=== PATIENT | female | born 1990 | race Caucasian/White ===

== ENCOUNTER 2023-07-18 07:10 | Inpatient (IN) ==
[2023-07-18] MEDS ORDERED: OXYTOCIN 30 UNITS/500 ML BAG IV PRN ×3 (08:24→22:03)
[2023-07-18] MEDS ORDERED: LIDOCAINE 1% LOCAL 20 ML VIAL INFIL PRN (08:24)
[2023-07-18] MEDS: LACTATED RINGER'S 1,000 ML IV PRN ×2 (08:43→13:31)
[2023-07-18 08:47] LABS: Hematocrit (blood only) 35.3 % (37.0-47.0); Hemoglobin 12.1 g/dl (12.0-16.0); Mean Corpuscular Hemoglobin 30.5 pg (25.0-34.0); Mean Corpuscular Hgb Conc 34.3 g/dL (32.0-36.0); Mean Corpuscular Volume 88.9 fL (80.0-100.0); Mean Platelet Volume 9.6 fL (9.4-12.4); Platelet Count 291 K/uL (130-400); RDW Coefficient of Variation 13.1 % (11.5-14.5); RDW Standard Deviation 42.6 fL (36.4-46.3); Red Blood Count 3.97 M/uL (4.20-5.40); White Blood Count 12.77 K/ul (4.8-10.8)
--- NOTE | 2023-07-18 09:52 | History & Physical Report ---
Date of Service July 18, 2023 Assessment & Plan (1) Hypothyroidism during : Plan: Maria A is a 33-year-old G2, P0 currently at 39 weeks 5 days gestational age presents with spontaneous rupture of membranes. 1. Fetus: Cat 1 2. Labor: Not in labor. Cervix unfavorable. Recommended starting oxytocin which patient was agreeable to 3 GBS negative 4 vitals within normal limits. (2) Supervision of normal first : (3) PROM (premature rupture of membranes): History of Present Illness Primary Care Provider: Ara Mcgovern MD Maria A is a 33-year-old G2, P0 currently at 39 weeks 5 days gestational age presents with spontaneous rupture of membranes. Patient reports rupture membranes around 5 AM this morning. Reporting mild contractions movement. Denying any vaginal bleeding. complicated by hypothyroidism but otherwise unremarkable. OB Labs: Blood Type A Positive 01/06/23 Antibody Screen NEGATIVE 01/06/23 Hemoglobin 11.1 g/dl (12.0-16.0) L 05/03/23 Hematocrit 32.6 % (37.0-47.0) L 05/03/23 Mean Corpuscular Volume 88.4 fL (80.0-100.0) 01/06/23 Platelet Count 310 K/uL (130-400) 01/06/23 Varicella-Zoster IgG Antibody 337.50 index 03/26/22 Rubella IgG Antibody Immune (Immune) 01/06/23 Rapid Plasma Reagin Nonreactive (Nonreactive) 01/06/23 Hepatitis B Surface Antigen. NON-REACTIVE (NON-REACTIVE) 01/06/23 Hepatitis C Antibody (EIA) NON-REACTIVE (NON-REACTIVE) 01/06/23 HIV (1&2) Ag and Ab Confirmation NON-REACTIVE (NON-REACTIVE) 01/06/23 Glucose 1 Hour 50 gm Load 130 mg/dl (70-130) 05/03/23 OB Optional Labs: Chlamydia trachomatis RNA Not Detected (NotDetected) 01/06/23 Neisseria gonorrhoeae RNA Not Detected (NotDetected) 01/06/23 Thyroid Stimulating Hormone (TSH) 0.653 uIu/ml (0.300-4.500) 05/03/23 Allergies Allergy/AdvReac Type Severity Reaction Status Date / Time No Known Allergies Allergy Verified 07/16/23 15:18 Home Medications Medication Instructions Recorded Confirmed Type prenat.vits,keli,uzf-swwy-iiyzw 1 tab PO DAILY 06/05/21 07/16/23 History levothyroxine 125 mcg capsule See Rx Instructions PO QAM #104 04/27/23 07/18/23 Rx caps Patient History Medical History GERD (gastroesophageal reflux disease) History of COVID-19 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 Surgical History [place] teeth extracted Family History Grandmother (Paternal) Breast cancer Grandfather (Paternal) Prostate cancer Alzheimer disease Grandmother (Maternal) Diabetes Grandfather (Maternal) Diabetes Heart disease Cancer Other No family history of adverse response to anesthesia Denies family history of Ovarian cancer Crohn's disease Myocardial infarction Colorectal cancer Ulcerative colitis Colonic polyp Social History (Updated 01/01/23 @ 08:56 by Maggie Sosa RN) Smoking Status: Never smoker Second Hand Exposure: No; Do You Dip or Chew Tobacco: No; Hx Alcohol Use: Yes Alcohol type: beer, wine and hard liquor Hx Substance Use: No Preferred Language: Irish Communication Ability: Effective Visual Impairment: Partially Limited Hearing Ability: Normal Cardiology Physician Assistant Required: No Beliefs That Will Affect Care: None marital status: marital status details: Rajan Sharp ( [phone] Current Living Situation: Spouse Current Living Situation Comment: Lives at home with and one dog. current occupational status: employed current occupation: [employer] How many Children do You have: 0 Other Information That Helps Us Care for You: No Feels Safe at Home: Yes Safety Concerns: Feels Safe At This Time Childhood Exposure to Second-Hand Smoke: No Diet: regular during the past year weight has: remained stable Dental Care, Regularly: Yes Physical Activity Frequency: Daily Seatbelt Use: always Sunscreen Use: Yes Assistive Devices: None Physical Exam Genitourinary: normal external appearance Manual OB Exam: + cervical dilation fingertip, + cervical effacement 20%, + station high and + amniotic fluid (Positive ferning and pooling) clear OB Exam Monitor Tracing: + external FHT monitor used, + external uterine monitor used, + category I and + normal FHT variability Results & Data Vital Signs (Past 12 Hours) Vital Signs Temp Pulse Resp BP 07/18/23 07:35 36.9 C 86 16 117/74 07/18/23 07:34 86 117/74 Coding Level of Care Code None Diagnoses Hypothyroidism during in third trimester O99.283; E03.9 Trimester: third trimester Encounter for supervision of normal first in third trimester Z34.03 Trimester: third trimester Full-term premature rupture of membranes, unspecified duration to onset of labor O42.92 PROM onset of labor timing: unspecified duration between rupture of membranes and onset of labor PROM gestational age: full term (1) Hypothyroidism during Trimester: third trimester Qualified Code(s): O99.283 - Endocrine, nutritional and metabolic diseases complicating , third trimester; E03.9 - Hypothyroidism, unspecified (2) Supervision of normal first Trimester: third trimester Qualified Code(s): Z34.03 - Encounter for supervision of normal first , third trimester (3) PROM (premature rupture of membranes) PROM onset of labor timing: unspecified duration between rupture of membranes and onset of labor PROM gestational age: full term Qualified Code(s): O42.92 - Full-term premature rupture of membranes, unspecified as to length of time between rupture and onset of labor
[2023-07-18] MEDS ORDERED: SODIUM CHLORIDE 0.9% PF INJ 10 ML VIAL ONE (12:17)
[2023-07-18] MEDS ORDERED: fentaNYL citrate PF 100 MCG/2 ML VIAL ONE ×2 (12:17→18:02)
[2023-07-18] MEDS ORDERED: ePHEDrine sulfate 50 MG/ML AMP ONE (12:17)
[2023-07-18] MEDS ORDERED: fentANYL 2 MCG/ML BUPIVacaine 0.125%-NSS 100ML BAG ONE (12:18)
[2023-07-18] MEDS ORDERED: LIDOCAINE 2%/EPINEPHRINE 1:200,000 20 ML PF ONE (12:18)
[2023-07-18] MEDS ORDERED: BUPIVACAINE 0.25% PF 30 ML VIAL ONE (12:18)
--- NOTE | 2023-07-18 13:36 | Anesthesiology Consultation ---
Date of Service July 18, 2023 Assessment & Plan Chart Review Chart Review: Acceptable Risk for Labor Epidural Consults Requested none History Height/Weight Height: 5 ft 3 in Weight: 76.657 kg Allergies Allergy/AdvReac Type Severity Reaction Status Date / Time No Known Allergies Allergy Verified 07/16/23 15:18 Medications Home Medications Medication Instructions Recorded Confirmed Last Taken prenat.vits,keli,hma-dmzm-prume 1 tab PO DAILY 06/05/21 07/16/23 10/26/21 levothyroxine 125 mcg capsule See Rx Instructions PO QAM #104 04/27/23 07/18/23 07/18/23 caps 0530 Active Medications Generic Name Dose Route Start Last Admin Trade Name Freq PRN Reason Stop Dose Admin Oxytocin 30 units in 500 mls @ 2 mls/hr 07/18/23 08:24 07/18/23 09:22 Pitocin IV 07/20/23 08:23 0.12 units/hr .Q24H PRN 2 mls/hr Labor Induction/Augmentation Administration Protocol 0.12 UNITS/HR Lactated Ringer's 1,000 mls @ 125 mls/hr 07/18/23 08:24 07/18/23 13:31 Lr IV 07/20/23 08:23 125 mls/hr .Q8H PRN Administration L&D Protocol Protocol Past Medical History Medical History GERD (gastroesophageal reflux disease) History of COVID-19 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 Past Family History Family History Grandmother (Paternal) Breast cancer Grandfather (Paternal) Prostate cancer Alzheimer disease Grandmother (Maternal) Diabetes Grandfather (Maternal) Diabetes Heart disease Cancer Other No family history of adverse response to anesthesia Denies family history of Ovarian cancer Crohn's disease Myocardial infarction Colorectal cancer Ulcerative colitis Colonic polyp Past Surgical History Surgical History [place] teeth extracted Social History Smoking Status: Never smoker Do You Dip or Chew Tobacco: No Hx Alcohol Use: Yes Alcohol type: beer, wine and hard liquor alcohol intake frequency: a few times a week Hx Substance Use: No substance use type: does not use Physical Exam Vital Signs Last Vital Signs Temp 36.7 C 07/18/23 10:00 Pulse 81 07/18/23 11:42 Resp 18 07/18/23 10:00 BP 121/74 07/18/23 11:42 Testing Laboratory Results 07/18/23 08:34
[2023-07-18] MEDS ORDERED: NALBUPHINE HCL 5 MG in SYRINGE 0 ML IV PRN (14:21)
[2023-07-18] MEDS ORDERED: fentaNYL citrate PF 100 MCG/2 ML VIAL EPI STA (14:21)
[2023-07-18] MEDS ORDERED: ROPIVACAINE 0.5% PF 5 MG/ML 20 ML VIAL EPI PRN (14:21)
[2023-07-18] MEDS ORDERED: NALOXONE HCL 1 MG in SODIUM CHLORIDE 0.9% 1,000 ML IV PRN (14:21)
[2023-07-18] MEDS ORDERED: LIDOCAINE 2%/EPINEPHRINE 1:200,000 20 ML PF EPI STA (14:21)
[2023-07-18] MEDS ORDERED: BUPIVACAINE 0.25% PF 30 ML VIAL EPI STA (14:21)
[2023-07-18] MEDS ORDERED: fentaNYL citrate PF 100 MCG/2 ML VIAL EPI PRN (14:21)
[2023-07-18] MEDS ORDERED: BUPIVACAINE 0.25% PF 30 ML VIAL EPI PRN (14:21)
[2023-07-18] MEDS ORDERED: SODIUM CHLORIDE 0.9% PF INJ 10 ML VIAL EPI PRN (14:21)
[2023-07-18] MEDS ORDERED: NALOXONE HCL 0.4 MG/1 ML VIAL/CARP IV PRN (14:21)
[2023-07-18] MEDS ORDERED: diphenhydrAMINE 50 MG/ML VIAL IV PRN (14:21)
[2023-07-18] MEDS ORDERED: LIDOCAINE 2% MPF LOCAL 5 ML VIAL EPI PRN (14:21)
[2023-07-18] MEDS ORDERED: fentANYL 2 MCG/ML BUPIVacaine 0.125%-NSS 100ML BAG EPI PRN (14:21)
[2023-07-18] MEDS ORDERED: ePHEDrine sulfate 50 MG/ML AMP IV PRN (14:21)
[2023-07-18] MEDS ORDERED: SODIUM CHLORIDE 0.9% PF INJ 10 ML VIAL EPI STA (14:21)
--- NOTE | 2023-07-18 14:30 | Anesthesiology Consultation ---
Date of Service July 18, 2023 Assessment & Plan Chart Review Chart Review: Acceptable Risk for Surgery Consults Requested none History Height/Weight Height: 5 ft 3 in Weight: 76.657 kg Allergies Allergy/AdvReac Type Severity Reaction Status Date / Time No Known Allergies Allergy Verified 07/16/23 15:18 Medications Home Medications Medication Instructions Recorded Confirmed Last Taken prenat.vits,keli,cag-iihm-bsywf 1 tab PO DAILY 06/05/21 07/16/23 10/26/21 levothyroxine 125 mcg capsule See Rx Instructions PO QAM #104 04/27/23 07/18/23 07/18/23 caps 0530 Active Medications Generic Name Dose Route Start Last Admin Trade Name Freq PRN Reason Stop Dose Admin Oxytocin 30 units in 500 mls @ 4 mls/hr 07/18/23 08:24 07/18/23 11:20 Pitocin IV 07/20/23 08:23 0.24 units/hr .Q24H PRN 4 mls/hr Labor Induction/Augmentation Titration Protocol 0.24 UNITS/HR Lactated Ringer's 1,000 mls @ 125 mls/hr 07/18/23 08:24 07/18/23 13:31 Lr IV 07/20/23 08:23 125 mls/hr .Q8H PRN Administration L&D Protocol Protocol NPO Date Last Intake of Fluids: 07/18/23 Time Last Intake of Fluids: 13:30 Date Last Intake of Solids: 07/18/23 Time Last Intake of Solids: 06:45 Past Medical History Medical History GERD (gastroesophageal reflux disease) History of COVID-19 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 Past Family History Family History Grandmother (Paternal) Breast cancer Grandfather (Paternal) Prostate cancer Alzheimer disease Grandmother (Maternal) Diabetes Grandfather (Maternal) Diabetes Heart disease Cancer Other No family history of adverse response to anesthesia Denies family history of Ovarian cancer Crohn's disease Myocardial infarction Colorectal cancer Ulcerative colitis Colonic polyp Past Surgical History Surgical History [place] teeth extracted Social History Smoking Status: Never smoker Do You Dip or Chew Tobacco: No Hx Alcohol Use: Yes Alcohol type: beer, wine and hard liquor alcohol intake frequency: a few times a week Hx Substance Use: No substance use type: does not use Physical Exam Vital Signs Last Vital Signs Temp 36.7 C 07/18/23 10:00 Pulse 91 H 07/18/23 14:28 Resp 18 07/18/23 10:00 BP 100/56 L 07/18/23 14:28 Pulse Ox 97 07/18/23 14:28 Testing Laboratory Results 07/18/23 08:34
--- NOTE | 2023-07-18 19:29 | Anesthesia Procedure Note ---
Date of Service July 18, 2023 Anesthesia Epidural Re-Dose Vital Signs Temp Pulse Resp BP Pulse Ox 36.9 C 95 H 18 118/74 97 07/18/23 17:58 07/18/23 19:24 07/18/23 17:58 07/18/23 19:24 07/18/23 19:23 Notes Pain Intensity: 0 Dilatation (cm): 5.0 Effacement (%): 90 Called by nursing to evaluate epidural as the patient is having right-sided pain. Withdrew catheter fro 10cm to 9cm john paul at skin and epidural was re-dosed with the following medications (all medications via epidural route) after negative aspiration of the epidural catheter for CSF/HEME. 2% lidocaine 5ml with fentanyl 100mcg. Pt subsequently reported satisfactory relief. After Epidural Re-Dose Mental Status: alert / awake / arousable Pain: improving with treatment Airway Patency, RR, SpO2: stable & adequate BP & HR: stable & adequate
[2023-07-18] MEDS ORDERED: HYDROCORTISONE ACETATE 25 MG SUPP PR PRN (22:03)
[2023-07-18] MEDS ORDERED: DIPHTHERIA/TETANUS/PERTUSSIS Vaccine (Tdap, Age 7+yrs) 0.5mL SYR/VL IM ONE (22:03)
[2023-07-18] MEDS ORDERED: ACETAMINOPHEN 325 MG TAB PO PRN (22:03)
[2023-07-18] MEDS ORDERED: BENZOCAINE 20% SPRY 85 APPLN/85 GM CAN EXT PRN (22:03)
--- NOTE | 2023-07-18 22:08 | Delivery Summary ---
Vaginal Delivery Summary Date of Service July 18, 2023 Vaginal Delivery Summary and 1st Degree LAC Patient progressed to 10 cm dilated 100% effaced +2 station pushed over intact perineum with epidural anesthesia and delivered a viable with weight and Apgars pending. Had the delivered in JORDYN position restituted to right transverse. A double tight nuchal cord was noted which was easily reduced. Body and shoulders quickly followed. was noted to have good tone without spontaneous cry and was stimulated for approximately 30 seconds after which the cord was double clamped and cut. became vigorous soon after clamping the cord. Attention was then turned to delivery the placenta which delivered intact with three-vessel cord with gentle cord traction. Inspection of perineum vagina and cervix there is noted to be a first-degree perineal la ceration which was repaired with 3-0 Vicryl in continuous running stitch. Needle sponge and instrument counts were correct at the completion of the case. Both mother and stable in the immediate postdelivery period. EBL at 300 mL. No complication noted [facility] Vaginal Delivery Charge Delivery Type Details: and 1st Degree LAC
[2023-07-19] MEDS: IBUPROFEN 600 MG TAB PO PRN ×5 (00:42→20:17)
[2023-07-19] MEDS ORDERED: LEVOTHYROXINE SODIUM 125 MCG TABLET PO SCH (06:30)
[2023-07-19] MEDS: LEVOTHYROXINE SODIUM 125 MCG TABLET PO SCH (06:40)
--- NOTE | 2023-07-19 07:10 | Obstetrical Progress Note ---
Date of Service July 19, 2023 Assessment & Plan (1) care following vaginal delivery: Plan: Doing well Pain control Encourage Ambulation Admission and Anticipated Discharge Date Admission Date: July 18, 2023 Supervising Physician Co-Signing Physician Notes Patient seen with resident and agree with the above findings and plan. Routine care Subjective 33 yo post day 1 s/p Ambulation: ambulating minimally Voiding: has not voided post- Passing Gas:: Yes Diet Tolerance:: regular diet Lochia:: Small Feeding Type:: breast feeding Current Pain Level: minimal Resting comfortably this AM in NAD. Denies SOW, CP, SOB, N/V/D, LE pain/swelling. Review of Systems Review of Systems: reviewed, per HPI Physical Exam Physical Exam: General: patient resting comfortably, NAD, non-toxic in appearance, answers questions appropriately. Skin: warm, dry, intact HEENT: NC/AT, anicteric sclera, conjunctiva without injection, moist mucus membranes. Heart: +S1/S2, regular, no m/r/g Lungs: equal air entry bilaterally, no rales/rhonchi/wheezes Abd: +BS, soft, NT/ND, uterine fundus firm at umbilicus. Ext: warm, no clubbing/cyanosis or edema, Mary's neg. Neuro: nonfocal, speech intact, no facial droop, moving all extremities on command. Results & Data Vital Signs (Past 12 Hours) Vital Signs Temp Pulse Pulse Resp BP BP Pulse Ox 07/19/23 03:56 36.5 C 75 18 105/64 96 07/19/23 00:55 36.6 C 92 H 18 119/76 97 07/19/23 00:08 90 117/64 07/19/23 00:05 18 07/18/23 23:52 125 H 122/70 07/18/23 23:37 97 H 121/61 07/18/23 23:35 18 07/18/23 23:23 155 H 110/69 07/18/23 23:07 99 H 118/68 07/18/23 23:05 18 07/18/23 22:53 100 H 122/71 07/18/23 22:50 18 07/18/23 22:38 110 H 136/65 07/18/23 22:35 18 07/18/23 22:23 109 H 123/83 07/18/23 22:20 18 07/18/23 22:07 106 H 131/58 L 07/18/23 22:05 36.9 C 18 07/18/23 21:54 117 H 137/62 07/18/23 21:39 13 L 69 L 07/18/23 21:37 154 H 86 L 07/18/23 21:34 133 H 94 07/18/23 21:30 18 07/18/23 21:29 126 H 88 L 07/18/23 21:27 122 H 90 07/18/23 21:24 96 07/18/23 21:24 114 H 07/18/23 21:24 115 H 132/66 07/18/23 21:21 122 H 94 07/18/23 21:19 153 H 97 07/18/23 21:14 128 H 95 07/18/23 21:10 129 H 125/69 93 07/18/23 21:09 96 07/18/23 21:09 133 H 07/18/23 21:09 164 H 116/63 07/18/23 21:04 122 H 97 07/18/23 21:00 18 07/18/23 20:59 126 H 95 07/18/23 20:54 116 H 126/81 07/18/23 20:53 116 H 97 07/18/23 20:52 117 H 83 L 07/18/23 20:48 106 H 99 07/18/23 20:45 114 H 90 07/18/23 20:43 108 H 99 07/18/23 20:39 100 H 132/80 07/18/23 20:38 95 H 95 07/18/23 20:37 96 H 92 07/18/23 20:33 105 H 97 07/18/23 20:32 18 07/18/23 20:32 36.9 C 18 07/18/23 20:31 103 H 94 07/18/23 20:30 18 07/18/23 20:28 101 H 96 07/18/23 20:25 111 H 90 07/18/23 20:23 109 H 96 07/18/23 20:18 98 H 96 07/18/23 20:13 108 H 96 07/18/23 20:12 124 H 94 07/18/23 20:09 85 106/60 07/18/23 20:08 89 97 07/18/23 20:03 99 H 95 07/18/23 20:00 18 07/18/23 19:58 107 H 97 07/18/23 19:55 103 H 129/77 07/18/23 19:53 102 H 95 07/18/23 19:48 108 H 97 07/18/23 19:43 103 H 95 07/18/23 19:42 103 H 94 07/18/23 19:39 103 H 118/74 07/18/23 19:38 100 H 96 07/18/23 19:33 95 H 96 07/18/23 19:30 18 07/18/23 19:28 98 H 97 07/18/23 19:26 37.2 C 18 07/18/23 19:24 95 H 118/74 07/18/23 19:23 101 H 97 07/18/23 19:18 107 H 96 07/18/23 19:13 104 H 96 07/18/23 19:09 109 H 124/70 07/18/23 19:08 102 H 97 O2 Del Method 07/19/23 03:56 Room Air 07/19/23 00:55 Room Air 07/19/23 00:08 07/19/23 00:05 07/18/23 23:52 07/18/23 23:37 07/18/23 23:35 07/18/23 23:23 07/18/23 23:07 07/18/23 23:05 07/18/23 22:53 07/18/23 22:50 07/18/23 22:38 07/18/23 22:35 07/18/23 22:23 07/18/23 22:20 07/18/23 22:07 07/18/23 22:05 07/18/23 21:54 07/18/23 21:39 07/18/23 21:37 07/18/23 21:34 07/18/23 21:30 07/18/23 21:29 07/18/23 21:27 07/18/23 21:24 07/18/23 21:24 07/18/23 21:24 07/18/23 21:21 07/18/23 21:19 07/18/23 21:14 07/18/23 21:10 07/18/23 21:09 07/18/23 21:09 07/18/23 21:09 07/18/23 21:04 07/18/23 21:00 07/18/23 20:59 07/18/23 20:54 07/18/23 20:53 07/18/23 20:52 07/18/23 20:48 07/18/23 20:45 07/18/23 20:43 07/18/23 20:39 07/18/23 20:38 07/18/23 20:37 07/18/23 20:33 07/18/23 20:32 07/18/23 20:32 07/18/23 20:31 07/18/23 20:30 07/18/23 20:28 07/18/23 20:25 07/18/23 20:23 07/18/23 20:18 07/18/23 20:13 07/18/23 20:12 07/18/23 20:09 07/18/23 20:08 07/18/23 20:03 07/18/23 20:00 07/18/23 19:58 07/18/23 19:55 07/18/23 19:53 07/18/23 19:48 07/18/23 19:43 07/18/23 19:42 07/18/23 19:39 07/18/23 19:38 07/18/23 19:33 07/18/23 19:30 07/18/23 19:28 07/18/23 19:26 07/18/23 19:24 07/18/23 19:23 07/18/23 19:18 07/18/23 19:13 07/18/23 19:09 07/18/23 19:08 Laboratory Results 07/18/23 Range/Units 08:34 WBC 12.77 H (4.8-10.8) K/ul RBC 3.97 L (4.20-5.40) M/uL Hgb 12.1 (12.0-16.0) g/dl Hct 35.3 L (37.0-47.0) % MCV 88.9 (80.0-100.0) fL MCH 30.5 (25.0-34.0) pg MCHC 34.3 (32.0-36.0) g/dL RDW Std Deviation 42.6 (36.4-46.3) fL RDW Coeff of Melissa 13.1 (11.5-14.5) % Plt Count 291 (130-400) K/uL MPV 9.6 (9.4-12.4) fL Resident Activity Tracking Resident Involvement: Resident Care Provided Care Provided: Adult Hospital Medicine
[2023-07-19] MEDS: FERROUS SULFATE 325 MG TAB PO SCH (09:12)
[2023-07-19] MEDS: DOCUSATE SODIUM 100 MG CAP PO SCH ×2 (09:12→20:17)
[2023-07-19] MEDS: PRENATAL VITAMIN 1 TAB PO SCH (09:12)
--- NOTE | 2023-07-19 09:24 | Anesthesia Procedure Note ---
Date of Service July 19, 2023 Anesthesia Post Epidural Note Vital Signs Vital Signs: Temp Pulse Resp BP Pulse Ox O2 Del Method 97.9 F 73 18 115/71 99 Room Air 07/19/23 07:33 07/19/23 07:33 07/19/23 07:33 07/19/23 07:33 07/19/23 07:33 07/19/23 07:33 Pain Intensity Lower Medial Abdomen: Pain Intensity: 0 Lower Back: Pain Intensity: 2 Notes Mental Status: alert / awake / arousable and participated in evaluation Nausea / Vomiting: adequately controlled Pain: adequately controlled Airway Patency, RR, SpO2: stable & adequate BP & HR: stable & adequate Hydration State: stable & adequate Neuraxial Anesthesia: was administered and sensory block is resolving Anesthetic Complications: no major complications apparent and Pt Satisfied with anesthetic care Epidural: Removed without complications and With tip intact
[2023-07-19] MEDS ORDERED: bisacodyL 5 MG TABEC PO SCH (20:00)
--- NOTE | 2023-07-20 07:15 | Obstetrical Progress Note ---
Date of Service July 20, 2023 Assessment & Plan (1) care following vaginal delivery: Plan: Doing well Pain control Encourage Ambulation Discharge today Admission and Anticipated Discharge Date Admission Date: July 18, 2023 Supervising Physician Co-Signing Physician Notes Resident Physician Supervision Note: I interviewed and examined the patient. Discussed with Dr. Allen and agree with findings and plan as documented in the note. Any exceptions or clarifications are listed here: PP2 s/p , doing well. VSS, exam benign and wnl. DC home today Documented By: Imelda Powell MD Subjective 33 yo post day 2 s/p Ambulation: ambulating minimally Voiding: voiding normally Passing Gas:: Yes Diet Tolerance:: regular diet Lochia:: Small Feeding Type:: breast feeding Current Pain Level: minimal Resting comfortably this AM in NAD. Denies SOW, CP, SOB, N/V/D, LE pain/swelling. Desires discharge today Review of Systems Review of Systems: reviewed, per HPI Physical Exam Physical Exam: General: patient resting comfortably, NAD, non-toxic in appearance, answers questions appropriately. Skin: warm, dry, intact HEENT: NC/AT, anicteric sclera, conjunctiva without injection, moist mucus membranes. Heart: +S1/S2, regular, no m/r/g Lungs: equal air entry bilaterally, no rales/rhonchi/wheezes Abd: +BS, soft, NT/ND, uterine fundus firm at umbilicus. Ext: warm, no clubbing/cyanosis or edema, Mray's neg. Neuro: nonfocal, speech intact, no facial droop, moving all extremities on command. Results & Data Vital Signs (Past 12 Hours) Vital Signs Temp Pulse Resp BP 07/20/23 00:27 36.6 C 85 18 107/70 07/19/23 20:20 36.5 C 97 H 18 115/74 Resident Activity Tracking Resident Involvement: Resident Care Provided Care Provided: Adult Hospital Medicine
[2023-07-20] MEDS: LEVOTHYROXINE SODIUM 125 MCG TABLET PO SCH (07:24)
[2023-07-20] MEDS: IBUPROFEN 600 MG TAB PO PRN (07:33)
[2023-07-20] MEDS: FERROUS SULFATE 325 MG TAB PO SCH (09:38)
[2023-07-20] MEDS: DOCUSATE SODIUM 100 MG CAP PO SCH (09:38)
[2023-07-20] MEDS: PRENATAL VITAMIN 1 TAB PO SCH (09:38)
[2023-07-20] MEDS ORDERED: bisacodyL 10 MG SUPP PR PRN (22:03)
== END 2023-07-20 13:40 | disposition home or self-care (01) | DRG 807 ==
LOC: OPB 07:10 → 4S1 07:12 → 4E2 07-19 00:59
DX: Z3A.39 39 weeks gestation of pregnancy; O42.02 Full-term premature rupture of membranes, onset of labor within 24 hours of rupture; O69.81X0 Labor and delivery complicated by cord around neck, without compression, not applicable or unspecified; Z79.890 Hormone replacement therapy; E03.9 Hypothyroidism, unspecified; Z37.0 Single live birth; O70.0 First degree perineal laceration during delivery; O99.284 Endocrine, nutritional and metabolic diseases complicating childbirth

== ENCOUNTER 2024-10-03 07:52 | Inpatient (IN) ==
[2024-10-03] MEDS ORDERED: LIDOCAINE 1% LOCAL 20 ML VIAL INFIL PRN (07:58)
[2024-10-03] MEDS ORDERED: OXYTOCIN 30 UNITS/NSS 30 UNITS/500 ML BAG IV PRN (07:58)
[2024-10-03 08:28] LABS: Hematocrit (blood only) 34.8 % (37.0-47.0); Hemoglobin 11.8 g/dl (12.0-16.0); Mean Corpuscular Hemoglobin 29.9 pg (25.0-34.0); Mean Corpuscular Hgb Conc 33.9 g/dL (32.0-36.0); Mean Corpuscular Volume 88.1 fL (80.0-100.0); Mean Platelet Volume 9.7 fL (9.4-12.4); Platelet Count 320 K/uL (130-400); RDW Coefficient of Variation 13.2 % (11.5-14.5); RDW Standard Deviation 42.5 fL (36.4-46.3); Red Blood Count 3.95 M/uL (4.20-5.40); White Blood Count 11.82 K/ul (4.8-10.8)
--- NOTE | 2024-10-03 08:42 | History & Physical Report ---
Date of Service October 03, 2024 Assessment & Plan (1) Encounter for induction of labor: Plan admit, pitocin induction, epidural on demand, arom when indicated. fetus category one. anticipate . Admission and Anticipated Discharge Date Admission Date: October 03, 2024 History of Present Illness Chief Complaint: presents for elective iol Primary Care Provider: Ara Santiago MD Patient is a 34yowf with iup at 39 6/7 weeks who presents to labor and delivery for elective iol. Had bulb last night and still in. no lof/vb. rare contractions. +fm. 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 Jacob OB Labs: Blood Type A Positive 02/25/24 Antibody Screen NEGATIVE 02/25/24 Hgb 11.1 g/dl (12.0-16.0) L 07/12/24 Hct 33.0 % (37.0-47.0) L 07/12/24 MCV 87.8 fL (80.0-100.0) 02/25/24 Plt Count 289 K/uL (130-400) 02/25/24 VZV IgG Antibody 337.50 index 03/26/22 Rubella IgG Antibody Immune (Immune) 02/25/24 RPR Nonreactive (Nonreactive) 02/25/24 Treponema pallidum Ab Negative (Negative) 07/12/24 Hep Bs Antigen Negative (Negative) 02/25/24 Hep Bs Antigen NON-REACTIVE (NON-REACTIVE) 01/06/23 Hepatitis C Ab (EIA) NON-REACTIVE (NON-REACTIVE) 01/06/23 HIV 1&2 Ab/P24 Ag 4thGn Negative (Negative) 02/25/24 HIV (1&2) Ag & Ab Conf NON-REACTIVE (NON-REACTIVE) 01/06/23 Glucose 1 Hr 50 gm 154 mg/dl (70-130) H 07/12/24 OB Optional Labs: Chlamydia trachomatis RNA Not Detected (NotDetected) 02/25/24 Neisseria gonorrhoeae RNA Not Detected (NotDetected) 02/25/24 Thyroid Stimulating Hormone (TSH) 1.479 uIu/ml (0.300-4.500) 07/21/24 Labs Reviewed: Declines genetics--mln gbs neg--akh Allergies Allergy/AdvReac Type Severity Reaction Status Date / Time No Known Allergies Allergy Verified 10/02/24 20:24 Home Medications Medication Instructions Recorded Confirmed Type prenat.vits,keli,jqo-ymgl-ehcdi 1 tab PO DAILY 06/05/21 10/02/24 History levothyroxine 137 mcg tablet 137 mcg PO DAILY #30 tabs 08/08/24 10/02/24 Rx Patient History Medical History GERD (gastroesophageal reflux disease) Varicella vaccination Female infertility Hypothyroidism during History of COVID-19 09/01/21>HOME TEST + (NO CURRENT PROBLEMS) Surgical History [place] teeth extracted Family History Grandmother (Paternal) Breast cancer Grandfather (Paternal) Prostate cancer Alzheimer disease Grandmother (Maternal) Diabetes Grandfather (Maternal) Diabetes Heart disease Cancer Other No family history of adverse response to anesthesia Denies family history of Ovarian cancer Crohn's disease Myocardial infarction Colorectal cancer Ulcerative colitis Colonic polyp Social History Smoking Status: Never smoker Second Hand Exposure: No; Do You Dip or Chew Tobacco: No; Hx Alcohol Use: No Hx Substance Use: No Preferred Language: Brazilian Communication Ability: Effective Visual Impairment: Partially Limited Hearing Ability: Normal Home Based Assistant Required: No Beliefs That Will Affect Care: None marital status: marital status details: Rajan Sharp ( [phone] Current Living Situation: Spouse and Family Current Living Situation Comment: Lives at home with , child, and one dog. current occupational status: employed current occupation: [employer] How many Children do You have: 0 Feels Safe at Home: Yes Childhood Exposure to Second-Hand Smoke: No Diet: regular during the past year weight has: remained stable Dental Care, Regularly: Yes Physical Activity Frequency: Daily Seatbelt Use: always Sunscreen Use: Yes Assistive Devices: None OB History Past Pregnancies Del. Date GA wks Lbr Lgth wt Sex Type del Anes Place Del Prov ? Comment 07/19/22 6 Aborted-Spontaneous 07/18/23 39 8lb 11.3oz M Ep idural [facility] Dr. Contreras N [place] History noncontributory Physical Exam Constitutional: WD/WN, vitals as above Gastrointestinal (Abdomen): soft, gravid, nt Psychiatric: A+Ox3, euthymic affect Genitourinary: vinson removed with gentle tug cx--4/75/-3/soft cephalic by ultrasound toco--av efm--140s with mod variability, accels to 160s, no decels Results & Data Vital Signs (Past 12 Hours) Vital Signs Pulse BP 10/03/24 08:28 88 104/67 Coding Level of Care Code None Diagnoses Encounter for induction of labor Z34.90
--- NOTE | 2024-10-03 09:19 | Medical Student H&P ---
Date of Service October 03, 2024 Assessment & Plan (1) Encounter for induction of labor: Plan: Induction of labor -Admit for induction -Fetus category 1 -Arshad bulb placed last night, removed by Dr. Jacob -Will plan on pitocin induction -Epidural when requested -Artifical rupture of membranes when indicated -Anticipate normal spontaneous vaginal delivery Plan Admission and Anticipated Discharge Date Admission Date: October 03, 2024 History of Present Illness Chief Complaint: Induction of labor Primary Care Provider: Ara Santiago MD Maria A is a 34 year old female here for induction of labor. Arshad bulb placed last night. No vaginal bleeding, discharge, regular contractions on admission. Current medications = levothyroxine, vitamin. 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 Jacob Labs Lab Results OB Labs: Blood Type A Positive 02/25/24 Antibody Screen NEGATIVE 02/25/24 Hgb 11.1 g/dl (12.0-16.0) L 07/12/24 Hct 33.0 % (37.0-47.0) L 07/12/24 MCV 87.8 fL (80.0-100.0) 02/25/24 Plt Count 289 K/uL (130-400) 02/25/24 VZV IgG Antibody 337.50 index 03/26/22 Rubella IgG Antibody Immune (Immune) 02/25/24 RPR Nonreactive (Nonreactive) 02/25/24 Treponema pallidum Ab Negative (Negative) 07/12/24 Hep Bs Antigen Negative (Negative) 02/25/24 Hep Bs Antigen NON-REACTIVE (NON-REACTIVE) 01/06/23 Hepatitis C Ab (EIA) NON-REACTIVE (NON-REACTIVE) 01/06/23 HIV 1&2 Ab/P24 Ag 4thGn Negative (Negative) 02/25/24 HIV (1&2) Ag & Ab Conf NON-REACTIVE (NON-REACTIVE) 01/06/23 Glucose 1 Hr 50 gm 154 mg/dl (70-130) H 07/12/24 OB Optional Labs: Chlamydia trachomatis RNA Not Detected (NotDetected) 02/25/24 Neisseria gonorrhoeae RNA Not Detected (NotDetected) 02/25/24 Thyroid Stimulating Hormone (TSH) 1.479 uIu/ml (0.300-4.500) 07/21/24 Labs Reviewed: Declines genetics--mln gbs neg--akh Allergies Allergy/AdvReac Type Severity Reaction Status Date / Time No Known Allergies Allergy Verified 10/03/24 09:47 Home Medications Medication Instructions Recorded Confirmed Type prenat.vits,keli,miv-rxlu-inxtg 1 tab PO DAILY 06/05/21 10/03/24 History levothyroxine 137 mcg tablet 137 mcg PO DAILY #30 tabs 08/08/24 10/03/24 Rx ferrous sulfate 325 mg (65 mg 325 mg PO Q OTHER DAY 10/03/24 10/03/24 History iron) tablet (Iron (ferrous sulfate)) Patient History Medical History GERD (gastroesophageal reflux disease) Varicella vaccination Female infertility Hypothyroidism during History of COVID-19 09/01/21>HOME TEST + (NO CURRENT PROBLEMS) Surgical History [place] teeth extracted Family History Grandmother (Paternal) Breast cancer Grandfather (Paternal) Prostate cancer Alzheimer disease Grandmother (Maternal) Diabetes Grandfather (Maternal) Diabetes Heart disease Cancer Other No family history of adverse response to anesthesia Denies family history of Ovarian cancer Crohn's disease Myocardial infarction Colorectal cancer Ulcerative colitis Colonic polyp Social History Smoking Status: Never smoker Second Hand Exposure: No; Do You Dip or Chew Tobacco: No; Tobacco Cessation Education Requested by Patient: No Hx Alcohol Use: No Hx Substance Use: No Preferred Language: Slovenian Communication Ability: Effective Visual Impairment: Partially Limited Hearing Ability: Normal Production Support Developer Required: No Beliefs That Will Affect Care: None marital status: marital status details: Rajan Sharp ( [phone] Current Living Situation: Spouse Current Living Situation Comment: Lives with spouse and Son current occupational status: employed current occupation: [employer] How many Children do You have: 0 Other Information That Helps Us Care for You: No Feels Safe at Home: Yes Safety Concerns: Feels Safe At This Time Childhood Exposure to Second-Hand Smoke: No Diet: regular during the past year weight has: remained stable Dental Care, Regularly: Yes Physical Activity Frequency: Daily Seatbelt Use: always Sunscreen Use: Yes Assistive Devices: None OB History Past Pregnancies Del. Date GA wks Lbr Lgth wt Sex Type del Anes Place Del Prov ? 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 Received natural cycle IUI, successfully conceived, resulted in spontaneous 07/19/22. Resumed natural cycle IUI, resulted in 07/18/23. Review of Systems No fevers, chills, sweats No dyspnea, wheezing, cough Additional Comments: No chest pain, palpitations. Endorses minor leg swelling at ankles No abdominal pain outside of cramping, nausea, vomiting Physical Exam Physical Exam: Well-appearing, in no acute distress Gastrointestinal (Abdomen): Soft, gravid, nontender Musculoskeletal: No leg edema Skin: Warm and dry Genitourinary: 4/75/-2/soft per Dr. Jacob Monitoring External Monitor [id number], moderate variability, accelerations present, no decelerations Tocodynamometer Contractions of inconsistent frequency Results & Data Vital Signs (Past 12 Hours) Vital Signs Temp Pulse Resp BP 10/03/24 08:28 88 104/67 10/03/24 08:02 36.7 C 16 Supervising Attestation Patient seen and evaluated with MS2, Please see my complete history and physical.
[2024-10-03] MEDS: SODIUM CHLORIDE 0.9% 1,000 ML IV SCH (09:36)
[2024-10-03] MEDS: OXYTOCIN 30 UNITS/NSS 30 UNITS/500 ML BAG IV PRN (09:37)
[2024-10-03] MEDS: fentANYL 2 MCG/ML BUPIVacaine 0.125%-NSS 100ML BAG ONE (12:10)
[2024-10-03] MEDS: LIDOCAINE 2%/EPINEPHRINE 1:200,000 20 ML PF ONE (12:16)
[2024-10-03] MEDS: BUPIVACAINE 0.25% PF 30 ML VIAL ONE (12:17)
[2024-10-03] MEDS: fentaNYL citrate PF 100 MCG/2 ML VIAL ONE (12:18)
[2024-10-03] MEDS: SODIUM CHLORIDE 0.9% PF INJ 10 ML VIAL ONE (12:18)
--- NOTE | 2024-10-03 12:24 | Anesthesiology Consultation ---
Date of Service October 03, 2024 Assessment & Plan Chart Review Chart Review: Acceptable Risk for Labor Epidural Consults Requested none History Height/Weight Height: 5 ft 3 in Weight: 75.75 kg Allergies Allergy/AdvReac Type Severity Reaction Status Date / Time No Known Allergies Allergy Verified 10/03/24 09:47 Medications Home Medications Medication Instructions Recorded Confirmed Last Taken prenat.vits,keli,aqg-xwjh-nkwnn 1 tab PO DAILY 06/05/21 10/03/24 10/02/24 levothyroxine 137 mcg tablet 137 mcg PO DAILY #30 tabs 08/08/24 10/03/24 10/03/24 05:00 ferrous sulfate 325 mg (65 mg 325 mg PO Q OTHER DAY 10/03/24 10/03/24 2 Days Ago iron) tablet (Iron (ferrous ~10/01/24 sulfate)) Active Medications Generic Name Dose Route Start Last Admin Trade Name Freq PRN Reason Stop Dose Admin Oxytocin 30 units in 500 mls @ 8 mls/hr 10/03/24 07:58 10/03/24 11:12 Pitocin 30 Units/Nss IV 10/05/24 07:57 0.48 units/hr .Q24H PRN 8 mls/hr Labor Induction/Augmentation Titration Protocol 0.48 UNITS/HR Sodium Chloride 1,000 mls @ 80 mls/hr 10/03/24 09:15 10/03/24 12:00 Nss IV 10/04/24 09:14 80 mls/hr .[id number] HECTOR Administration Past Medical History Medical History GERD (gastroesophageal reflux disease) Varicella vaccination Female infertility Hypothyroidism during History of COVID-19 09/01/21>HOME TEST + (NO CURRENT PROBLEMS) Past Family History Family History Grandmother (Paternal) Breast cancer Grandfather (Paternal) Prostate cancer Alzheimer disease Grandmother (Maternal) Diabetes Grandfather (Maternal) Diabetes Heart disease Cancer Other No family history of adverse response to anesthesia Denies family history of Ovarian cancer Crohn's disease Myocardial infarction Colorectal cancer Ulcerative colitis Colonic polyp Past Surgical History Surgical History [place] teeth extracted Social History Smoking Status: Never smoker Do You Dip or Chew Tobacco: No Hx Alcohol Use: No Alcohol type: beer, wine and hard liquor alcohol intake frequency: a few times a week Hx Substance Use: No substance use type: does not use Physical Exam Vital Signs Last Vital Signs Temp 36.7 C 10/03/24 09:10 Pulse 118 H 10/03/24 12:20 Resp 16 10/03/24 09:10 BP 132/70 10/03/24 12:20 Pulse Ox 99 10/03/24 12:20 Testing Laboratory Results 10/03/24 08:09
[2024-10-03] MEDS ORDERED: LIDOCAINE 2% MPF LOCAL 5 ML VIAL EPI PRN (12:25)
[2024-10-03] MEDS ORDERED: NALBUPHINE HCL INJ 10 MG/ML AMP IV PRN ×2 (12:25→21:57)
[2024-10-03] MEDS ORDERED: ROPIVACAINE 0.5% PF 5 MG/ML 20 ML VIAL EPI PRN (12:25)
[2024-10-03] MEDS ORDERED: NALOXONE HCL 1 MG in SODIUM CHLORIDE 0.9% 1,000 ML IV PRN ×2 (12:25→21:57)
[2024-10-03] MEDS ORDERED: fentaNYL citrate PF 100 MCG/2 ML VIAL EPI PRN (12:25)
[2024-10-03] MEDS ORDERED: ePHEDrine sulfate 50 MG/ML AMP IV PRN ×2 (12:25→21:57)
[2024-10-03] MEDS ORDERED: NALOXONE HCL 0.4 MG/1 ML VIAL/CARP IV PRN ×2 (12:25→21:57)
[2024-10-03] MEDS ORDERED: diphenhydrAMINE 50 MG/ML VIAL IV PRN ×3 (12:25→21:57)
[2024-10-03] MEDS ORDERED: SODIUM CHLORIDE 0.9% PF INJ 10 ML VIAL EPI PRN (12:25)
[2024-10-03] MEDS ORDERED: BUPIVACAINE 0.25% PF 30 ML VIAL EPI PRN (12:25)
[2024-10-03] MEDS ORDERED: fentANYL 2 MCG/ML BUPIVacaine 0.125%-NSS 100ML BAG EPI PRN (12:25)
[2024-10-03] MEDS: ePHEDrine sulfate 50 MG/ML AMP ONE (12:39)
--- NOTE | 2024-10-03 14:09 | Labor Progress Brief Note ---
Date of Service October 03, 2024 Subjective comfortable with epidural had prevously confirmed cephalic Assessment & Plan (1) Encounter for induction of labor: (2) Face presentation of fetus: Plan fetus category one. Now feeling face presentation, I think, mentum right, but difficult to determine. Will either flex the head and come out no problem or will deflex and will need to proceed with c/s. They express understanding of si tuation. Will continue to monitor closely. Admission and Anticipated Discharge Date Admission Date: October 03, 2024 Physical Exam Physical Exam: cx--, palpating face structures arom--copious clear toco--q2-4min efm--145 with mod variability, accels to 160s, no decels Results & Data Vital Signs (Past 12 Hours) Vital Signs Temp Pulse Resp BP Pulse Ox 10/03/24 14:00 98 H 100 10/03/24 13:56 100 H 113/76 10/03/24 13:55 99 H 100 10/03/24 13:50 98 H 100 10/03/24 13:45 91 H 100 10/03/24 13:42 99 H 111/71 10/03/24 13:40 96 H 100 10/03/24 13:35 105 H 100 10/03/24 13:31 20 10/03/24 13:31 20 10/03/24 13:30 116 H 100 10/03/24 13:25 110 H 100 10/03/24 13:22 100 H 117/73 10/03/24 13:20 106 H 100 10/03/24 13:18 84 16 118/72 10/03/24 13:15 97 H 100 10/03/24 13:13 100 H 116/71 10/03/24 13:10 109 H 100 10/03/24 13:07 97 H 118/69 10/03/24 13:05 109 H 100 10/03/24 13:03 79 115/67 10/03/24 13:01 20 10/03/24 13:01 20 10/03/24 13:00 99 H 100 10/03/24 12:58 96 H 15 115/73 10/03/24 12:55 116 H 100 10/03/24 12:53 108 H 117/75 10/03/24 12:50 110 H 99 10/03/24 12:47 102 H 100/68 10/03/24 12:45 95 H 97 10/03/24 12:43 121 H 15 90/53 L 10/03/24 12:40 124 H 99 10/03/24 12:39 133 H 86/50 L 10/03/24 12:36 95 H 77/49 L 10/03/24 12:35 106 H 99 10/03/24 12:31 106 H 103/57 L 10/03/24 12:30 110 H 98 10/03/24 12:27 98 H 102/59 L 10/03/24 12:26 15 10/03/24 12:26 36.7 C 15 10/03/24 12:25 109 H 98 10/03/24 12:20 99 10/03/24 12:20 118 H 10/03/24 12:20 109 H 132/70 10/03/24 12:18 98 H 17 112/62 10/03/24 12:16 92 H 111/56 L 10/03/24 12:15 93 H 97 10/03/24 12:14 98 H 124/63 10/03/24 12:13 16 10/03/24 12:13 16 10/03/24 12:12 111 H 109/58 L 10/03/24 12:10 100 H 123/62 99 10/03/24 12:08 100 H 110/63 10/03/24 12:06 88 118/63 10/03/24 12:05 105 H 99 10/03/24 12:04 106 H 125/68 10/03/24 12:00 93 H 100 10/03/24 11:55 113 H 100 10/03/24 11:50 98 H 100 10/03/24 10:56 82 129/77 10/03/24 09:41 76 116/72 10/03/24 09:10 16 10/03/24 09:10 36.7 C 16 10/03/24 08:28 88 104/67 10/03/24 08:02 36.7 C 16 Coding Level of Care Code None Diagnoses Encounter for induction of labor Z34.90 Face presentation of fetus O32.3XX0
--- NOTE | 2024-10-03 15:25 | Communication Note ---
Date of Service: October 03, 2024 BEtter exam. forehead to materal right, mentum is on maternal left and slightly posterior. Will continue to try some moves to get the babies head to flex. category one. cx /-2
[2024-10-03] MEDS: BUPIVACAINE 0.25% PF 30 ML VIAL EPI STA (15:33)
[2024-10-03] MEDS: SODIUM CHLORIDE 0.9% PF INJ 10 ML VIAL EPI STA (15:33)
[2024-10-03] MEDS: LIDOCAINE 2%/EPINEPHRINE 1:200,000 20 ML PF EPI STA (15:33)
[2024-10-03] MEDS: fentaNYL citrate PF 100 MCG/2 ML VIAL EPI STA (15:33)
--- NOTE | 2024-10-03 16:28 | Communication Note ---
Date of Service: October 03, 2024 continues to be face presentation and now mentum is more anterior and just feeling the mouth. Recommend c/s delivery. She is agreeable.
[2024-10-03] MEDS ORDERED: SODIUM CHLORIDE 0.9% 1,000 ML IV SCH ×3 (16:30→18:41)
[2024-10-03] MEDS: ACETAMINOPHEN 500 MG TAB PO ONE (16:41)
[2024-10-03] MEDS ORDERED: AZITHROMYCIN 500 MG in SODIUM CHLORIDE 0.9% 250 ML IV ONE (16:45)
[2024-10-03] MEDS ORDERED: CITRIC ACID/SODIUM CITRATE 15 ML UDC PO SCH (16:45)
[2024-10-03] MEDS: CITRIC ACID/SODIUM CITRATE 15 ML UDC PO ONE (16:51)
[2024-10-03] MEDS: ceFAZolin 2000MG 2,000 MG/15 ML SYR IV ONE (16:53)
[2024-10-03] MEDS ORDERED: PHENYLEPHRINE HCL 25 MG/250 ML NSS IV ONE (16:58)
[2024-10-03] MEDS ORDERED: ONDANSETRON INJ 2 MG/ML 2 ML VIAL ONE (17:28)
[2024-10-03] MEDS ORDERED: OXYTOCIN 10 UNITS/ML VIAL ONE ×2 (17:28→17:36)
[2024-10-03] MEDS ORDERED: CARBOPROST TROMETHAMINE 250 MCG/ML AMPUL ONE (17:31)
[2024-10-03] MEDS ORDERED: fentaNYL citrate PF 100 MCG/2 ML VIAL ONE (17:32)
[2024-10-03] MEDS ORDERED: MoRPHine SULFATE PF 1 MG/ML 10 ML AMP/VIAL ONE (17:34)
[2024-10-03] MEDS ORDERED: PHENYLEPHRINE 100MCG/ML 5ML SYR ONE (17:35)
[2024-10-03] MEDS ORDERED: LIDOCAINE 2% MPF LOCAL 5 ML VIAL ONE (17:47)
--- NOTE | 2024-10-03 18:08 | Operative Report ---
PG Post Operative Report Pre & Post Diagnosis Operation Date: 10/03/24 17:15 Pre-Op Diagnosis: IUP at 39 weeks gestation; face presentation, mentum posterior Post-Op Diagnosis: IUP at 39 weeks gestation; face presentation, mentum posterior I identified the patient and participated in the time-out.: Yes Procedure Operation Date: 10/03/24 17:15 Actual Procedures p primary low transverse Section in LD; delivery of live female at 1726 - Paty Jacob MD, FACOG Surgeon Paty Jacob MD, FACOG Die Sinking Machine Operator Sam Romero Estimated Blood Loss 618 (QBL) Findings Consistent with Post-Op Diagnosis fetus in face presentation, mentum posterior with a lump on the forehead nl utx, tubes, ovs bilaterally Fluids ivf--1200cc uop--125cc clear urine Specimens none Drains vinson Anesthesia Type Labor Epidural Complications none Disposition Accompanied Patient To Recovery: Yes Disposition: L&D Indications [id number] who presented for elective iol. Cephalic by ultrasound but after rom for copious clear fluid, face presentation noted with mentum to the maternal left. Attempted position changes and further labor to see if head would flex but mentum rotated posteriorly, so c/s recommended. Description of Procedure The patient was taken to the operating room where she was identified verbally and by bracelet. She was then placed in the supine position with a leftward tilt. A Vinson catheter had been placed sterilely. the patient was prepped and draped in a normal standard fashion. the anesthetic was tested and found to be adequate. A time-out was held, identifying correct patient, procedure, positioning and preoperative antibiotics. There were no concerns. A Pfannenstiel skin incision was made with a knife and taken down to the underlying layer of fascia with the knife and Bovie electrocautery. Bleeding was attended to with the Bovie. The fascia was incised in the midline with the knife and taken out laterally with scissors. The superior edge of the fascial incision was grasped, elevated and the underlying layer of rectus muscle was taken off bluntly and with scissors. In a similar fashion, the inferior edge of the fascial incision was grasped, elevated and the underlying layer of rectus muscle was taken off bluntly and with scissors. The muscles were bluntly in the midline. The peritoneum was entered bluntly. The incision was then stretched. The bladder blade was placed. The vesicouterine peritoneum was identified, entered with scissors and taken out laterally with scissors. The bladder flap was created digitally A hysterotomy incision was scored with a knife and the incision was stretched superiorly and inferiorly with the lithoduplicator operator's fingers. The operators hand was placed into the incision , the head was lifted and the face was in the incision. Was then able to flex the head, and the head was delivered atraumatically. No nuchal cord. The nose and mouth were bulb suctioned. the rest of the was then delivered without difficulty. The nose and mouth were again bulb suctioned. The cord was clamped and cut and the infant was then handed off to the awaiting director energy for drying and attention. Cord blood and segment were obtained. The placenta was Manually extracted. The uterus was exteriorized and cleared of all clot and debris with moistened laparotomy sponges. The hysterotomy incision was repaired in two layers, the first in a running locked layer, the second in an imbricating layer. Hemostasis was noted to be good. Posterior cul-de-sac was irrigated and cleared of all clot and debris. The hysterotomy incision was again inspected and found to be hemostatic. the uterus was reinteriorized. Hysterotomy incision was again inspected and two sutures needed for hemostasis. The fascia was then reapproximated with 0 Vicryl starting at the edges and meeting in the midline. The subcuticular tissues were copiously irrigated and bleeding was attended to with cautery. The skin was then closed with 4-0 Vicryl in a subcuticular fashion. All sponge , lap and needle counts were correct x 2. The patient was taken to the recovery room in stable condition. I attest to the content of the Intraoperative Record and any orders documented therein. Any exceptions are noted below. OB Procedure Charges 62627
[2024-10-03] MEDS ORDERED: SENNA 8.6 MG TAB PO PRN (18:41)
[2024-10-03] MEDS ORDERED: CALCIUM CARBONATE 500 MG CHEWABLE TAB PO PRN (18:41)
[2024-10-03] MEDS ORDERED: PROMETHAZINE 12.5 MG/50.5 ML BAG IV PRN (18:41)
[2024-10-03] MEDS ORDERED: HYDROmorphone INJ 0.5 MG/0.5 ML SYR IV PRN ×2 (18:41→21:57)
[2024-10-03] MEDS ORDERED: DIPHTHER/TETAN/PERTUS Vaccine (Tdap, Adol/Adult) 0.5mL IM ONE (18:41)
[2024-10-03] MEDS ORDERED: oxyCODONE HCL IR 5 MG TAB (IMMEDIATE RELEASE) PO PRN ×2 (18:41→21:57)
[2024-10-03] MEDS ORDERED: BENZOCAINE 20% SPRY 85 APPLN/85 GM CAN EXT PRN (18:41)
[2024-10-03] MEDS ORDERED: MAGNESIUM HYDROXIDE SUSP 30 ML UDC PO PRN (18:41)
[2024-10-03] MEDS ORDERED: HYDROCORTISONE ACETATE 25 MG SUPP PR PRN (18:41)
[2024-10-03] MEDS ORDERED: ONDANSETRON INJ 2 MG/ML 2 ML VIAL IV PRN ×2 (18:41→21:57)
[2024-10-03] MEDS: KETOROLAC 30 MG/ML VIAL IV SCH (19:40)
[2024-10-03] MEDS: OXYTOCIN 20 UNITS/LR 1,002 ML IV SCH (20:27)
[2024-10-03] MEDS ORDERED: Nursing to Pharmacy Communication SCH (20:30)
[2024-10-03] MEDS: DOCUSATE SODIUM 100 MG CAP PO SCH (20:56)
[2024-10-03] MEDS: SIMETHICONE 80 MG CHEW PO SCH (20:56)
--- NOTE | 2024-10-03 21:51 | Anesthesiology Progress Note ---
Date of Service October 03, 2024 Anesthesia Post Procedure Vital Signs Vital Signs: Temp Pulse Pulse Resp BP BP Pulse Ox 10/03/24 21:26 16 95 10/03/24 20:35 18 96 10/03/24 20:25 36.4 C L 92 H 18 102/66 96 10/03/24 20:25 10/03/24 20:15 100 H 100 10/03/24 20:11 101 H 108/59 L 10/03/24 20:10 96 H 100 10/03/24 20:05 100 H 100 10/03/24 20:01 76 104/58 L 10/03/24 20:00 36.5 C 18 10/03/24 20:00 80 100 10/03/24 19:55 92 H 100 10/03/24 19:51 93 H 111/70 10/03/24 19:50 100 H 100 10/03/24 19:45 100 H 100 10/03/24 19:41 100 H 104/71 10/03/24 19:40 96 H 100 10/03/24 19:35 98 H 100 10/03/24 19:31 107 H 108/69 10/03/24 19:30 18 10/03/24 19:30 108 H 100 10/03/24 19:25 112 H 100 10/03/24 19:21 108 H 118/60 10/03/24 19:20 104 H 100 10/03/24 19:15 111 H 100 10/03/24 19:11 109 H 114/61 10/03/24 19:10 97 H 100 10/03/24 19:05 109 H 100 10/03/24 19:01 109 H 111/65 10/03/24 19:00 19 10/03/24 19:00 115 H 100 10/03/24 18:55 122 H 98 10/03/24 18:51 129 H 126/60 10/03/24 18:50 15 10/03/24 18:50 127 H 97 10/03/24 18:45 129 H 96 10/03/24 18:42 126 H 108/59 L 10/03/24 18:40 15 10/03/24 18:40 132 H 96 10/03/24 18:35 133 H 95 10/03/24 18:31 134 H 116/58 L 10/03/24 18:30 15 10/03/24 18:30 135 H 95 10/03/24 18:25 136 H 96 10/03/24 18:24 137 H 135/59 L 10/03/24 18:20 16 10/03/24 18:20 134 H 95 10/03/24 18:15 134 H 96 10/03/24 18:10 36.7 C 16 10/03/24 18:10 135 H 96 10/03/24 18:05 140 H 96 10/03/24 18:01 126 H 118/64 10/03/24 18:00 36.5 C 16 10/03/24 18:00 127 H 96 10/03/24 17:08 123 H 115/63 10/03/24 17:06 131 H 118/59 L 10/03/24 17:05 16 10/03/24 17:05 16 10/03/24 17:04 116 H 114/67 10/03/24 17:02 127 H 123/74 10/03/24 17:00 136 H 121/79 10/03/24 16:55 126 H 117/73 10/03/24 16:41 111 H 112/66 10/03/24 16:31 15 10/03/24 16:31 15 10/03/24 16:26 95 H 115/70 10/03/24 16:08 88 109/57 L 10/03/24 16:04 15 10/03/24 16:04 15 10/03/24 15:56 98 H 131/70 10/03/24 15:55 107 H 98 10/03/24 15:50 97 H 98 10/03/24 15:45 86 98 10/03/24 15:40 94 H 98 10/03/24 15:35 95 H 97 10/03/24 15:34 106 H 91 10/03/24 15:30 36.7 C 100 H 15 99 10/03/24 15:27 104 H 119/67 10/03/24 15:25 111 H 100 10/03/24 15:20 87 100 10/03/24 15:15 88 99 10/03/24 15:11 90 117/72 10/03/24 15:10 116 H 100 10/03/24 15:05 93 H 97 10/03/24 15:00 103 H 99 10/03/24 14:57 96 H 104/59 L 10/03/24 14:55 95 H 99 10/03/24 14:50 94 H 99 10/03/24 14:45 95 H 99 10/03/24 14:42 92 H 90/51 L 10/03/24 14:40 101 H 98 10/03/24 14:35 93 H 99 10/03/24 14:30 98 H 100 10/03/24 14:27 100 H 103/58 L 10/03/24 14:25 101 H 99 10/03/24 14:20 109 H 100 10/03/24 14:15 124 H 99 10/03/24 14:11 129 H 109/69 10/03/24 14:10 119 H 100 10/03/24 14:05 101 H 100 10/03/24 14:00 98 H 100 10/03/24 13:56 100 H 113/76 10/03/24 13:55 99 H 100 10/03/24 13:50 98 H 100 10/03/24 13:45 91 H 100 10/03/24 13:42 99 H 111/71 10/03/24 13:40 96 H 100 10/03/24 13:35 105 H 100 10/03/24 13:31 20 10/03/24 13:31 20 10/03/24 13:30 116 H 100 10/03/24 13:25 110 H 100 10/03/24 13:22 100 H 117/73 10/03/24 13:20 106 H 100 10/03/24 13:18 84 16 118/72 10/03/24 13:15 97 H 100 10/03/24 13:13 100 H 116/71 10/03/24 13:10 109 H 100 10/03/24 13:07 97 H 118/69 10/03/24 13:05 109 H 100 10/03/24 13:03 79 115/67 10/03/24 13:01 20 10/03/24 13:01 20 10/03/24 13:00 99 H 100 10/03/24 12:58 96 H 15 115/73 10/03/24 12:55 116 H 100 10/03/24 12:53 108 H 117/75 10/03/24 12:50 110 H 99 10/03/24 12:47 102 H 100/68 10/03/24 12:45 95 H 97 10/03/24 12:43 121 H 15 90/53 L 10/03/24 12:40 124 H 99 10/03/24 12:39 133 H 86/50 L 10/03/24 12:36 95 H 77/49 L 10/03/24 12:35 106 H 99 10/03/24 12:31 106 H 103/57 L 10/03/24 12:30 110 H 98 10/03/24 12:27 98 H 102/59 L 10/03/24 12:26 15 10/03/24 12:26 36.7 C 15 10/03/24 12:25 109 H 98 10/03/24 12:20 99 10/03/24 12:20 118 H 10/03/24 12:20 109 H 132/70 10/03/24 12:18 98 H 17 112/62 10/03/24 12:16 92 H 111/56 L 10/03/24 12:15 93 H 97 10/03/24 12:14 98 H 124/63 10/03/24 12:13 16 10/03/24 12:13 16 10/03/24 12:12 111 H 109/58 L 10/03/24 12:10 100 H 123/62 99 10/03/24 12:08 100 H 110/63 10/03/24 12:06 88 118/63 10/03/24 12:05 105 H 99 10/03/24 12:04 106 H 125/68 10/03/24 12:00 93 H 100 10/03/24 11:55 113 H 100 10/03/24 11:50 98 H 100 10/03/24 10:56 82 129/77 10/03/24 09:41 76 116/72 10/03/24 09:10 16 10/03/24 09:10 36.7 C 16 10/03/24 08:28 88 104/67 10/03/24 08:02 36.7 C 16 Pulse Ox O2 Del Method O2 Del Method 10/03/24 21:26 10/03/24 20:35 10/03/24 20:25 Room Air 10/03/24 20:25 96 Room Air 10/03/24 20:15 10/03/24 20:11 10/03/24 20:10 10/03/24 20:05 10/03/24 20:01 10/03/24 20:00 10/03/24 20:00 10/03/24 19:55 10/03/24 19:51 10/03/24 19:50 10/03/24 19:45 10/03/24 19:41 10/03/24 19:40 10/03/24 19:35 10/03/24 19:31 10/03/24 19:30 10/03/24 19:30 10/03/24 19:25 10/03/24 19:21 10/03/24 19:20 10/03/24 19:15 10/03/24 19:11 10/03/24 19:10 10/03/24 19:05 10/03/24 19:01 10/03/24 19:00 10/03/24 19:00 10/03/24 18:55 10/03/24 18:51 10/03/24 18:50 10/03/24 18:50 10/03/24 18:45 10/03/24 18:42 10/03/24 18:40 10/03/24 18:40 10/03/24 18:35 10/03/24 18:31 10/03/24 18:30 10/03/24 18:30 10/03/24 18:25 10/03/24 18:24 10/03/24 18:20 10/03/24 18:20 10/03/24 18:15 10/03/24 18:10 10/03/24 18:10 10/03/24 18:05 10/03/24 18:01 10/03/24 18:00 10/03/24 18:00 10/03/24 17:08 10/03/24 17:06 10/03/24 17:05 10/03/24 17:05 10/03/24 17:04 10/03/24 17:02 10/03/24 17:00 10/03/24 16:55 10/03/24 16:41 10/03/24 16:31 10/03/24 16:31 10/03/24 16:26 10/03/24 16:08 10/03/24 16:04 10/03/24 16:04 10/03/24 15:56 10/03/24 15:55 10/03/24 15:50 10/03/24 15:45 10/03/24 15:40 10/03/24 15:35 10/03/24 15:34 10/03/24 15:30 10/03/24 15:27 10/03/24 15:25 10/03/24 15:20 10/03/24 15:15 10/03/24 15:11 10/03/24 15:10 10/03/24 15:05 10/03/24 15:00 10/03/24 14:57 10/03/24 14:55 10/03/24 14:50 10/03/24 14:45 10/03/24 14:42 10/03/24 14:40 10/03/24 14:35 10/03/24 14:30 10/03/24 14:27 10/03/24 14:25 10/03/24 14:20 10/03/24 14:15 10/03/24 14:11 10/03/24 14:10 10/03/24 14:05 10/03/24 14:00 10/03/24 13:56 10/03/24 13:55 10/03/24 13:50 10/03/24 13:45 10/03/24 13:42 10/03/24 13:40 10/03/24 13:35 10/03/24 13:31 10/03/24 13:31 10/03/24 13:30 10/03/24 13:25 10/03/24 13:22 10/03/24 13:20 10/03/24 13:18 10/03/24 13:15 10/03/24 13:13 10/03/24 13:10 10/03/24 13:07 10/03/24 13:05 10/03/24 13:03 10/03/24 13:01 10/03/24 13:01 10/03/24 13:00 10/03/24 12:58 10/03/24 12:55 10/03/24 12:53 10/03/24 12:50 10/03/24 12:47 10/03/24 12:45 10/03/24 12:43 10/03/24 12:40 10/03/24 12:39 10/03/24 12:36 10/03/24 12:35 10/03/24 12:31 10/03/24 12:30 10/03/24 12:27 10/03/24 12:26 10/03/24 12:26 10/03/24 12:25 10/03/24 12:20 10/03/24 12:20 10/03/24 12:20 10/03/24 12:18 10/03/24 12:16 10/03/24 12:15 10/03/24 12:14 10/03/24 12:13 10/03/24 12:13 10/03/24 12:12 10/03/24 12:10 10/03/24 12:08 10/03/24 12:06 10/03/24 12:05 10/03/24 12:04 10/03/24 12:00 10/03/24 11:55 10/03/24 11:50 10/03/24 10:56 10/03/24 09:41 10/03/24 09:10 10/03/24 09:10 10/03/24 08:28 10/03/24 08:02 Pain Intensity Abdomen: Pain Intensity: 5 Transfer of Care Handoff Completed per policy Notes Mental Status: alert / awake / arousable and participated in evaluation Nausea / Vomiting: adequately controlled Pain: adequately controlled Airway Patency, RR, SpO2: stable & adequate BP & HR: stable & adequate Hydration State: stable & adequate Neuraxial Anesthesia: was administered and sensory block is resolving Anesthetic Complications: no major complications apparent and Pt Satisfied with anesthetic care
--- NOTE | 2024-10-03 21:51 | Anesthesia Procedure Note ---
Date of Service October 03, 2024 Anesthesia Post Epidural Note Vital Signs Vital Signs: Temp Pulse Resp BP Pulse Ox O2 Del Method 36.4 C L 92 H 16 102/66 95 Room Air 10/03/24 20:25 10/03/24 20:25 10/03/24 21:26 10/03/24 20:25 10/03/24 21:26 10/03/24 20:25 Pain Intensity Abdomen: Pain Intensity: 5 Notes Mental Status: alert / awake / arousable Nausea / Vomiting: adequately controlled Pain: adequately controlled Airway Patency, RR, SpO2: stable & adequate BP & HR: stable & adequate Hydration State: stable & adequate Neuraxial Anesthesia: was administered and sensory block is resolving Anesthetic Complications: no major complications apparent and Pt Satisfied with anesthetic care Epidural: Removed without complications and With tip intact
[2024-10-03] MEDS ORDERED: ACETAMINOPHEN 1,000 MG/100 ML VIAL IV PRN (21:57)
[2024-10-03] MEDS ORDERED: MoRPHine SULFATE PF 1 MG/ML 10 ML AMP/VIAL INT SPINAL ONE (21:57)
[2024-10-03] MEDS ORDERED: METOCLOPRAMIDE HCL 20 MG in SODIUM CHLORIDE 0.9% 50 ML IV PRN (21:57)
[2024-10-03] MEDS ORDERED: MoRPHine SULFATE 2 MG/ML CARP IV PRN (21:57)
[2024-10-03] MEDS ORDERED: MEPERIDINE HCL 25 MG/ML CARP/VIAL IV PRN (21:57)
[2024-10-03] MEDS ORDERED: KETOROLAC 30 MG/ML VIAL IV PRN (21:59)
[2024-10-03] MEDS ORDERED: NO NARCOTICS OR SEDATIVES SCH (22:00)
[2024-10-03] MEDS ORDERED: DC INTRASPINAL MORPHINE SCH (22:00)
[2024-10-04] MEDS: ACETAMINOPHEN 325 MG TAB PO SCH ×2 (01:31→19:48)
[2024-10-04] MEDS ORDERED: CITRIC ACID/SODIUM CITRATE 15 ML UDC PO SCH (06:00)
[2024-10-04 06:33] LABS: Basophils # (auto) 0.04 K/uL (0.00-0.20); Basophils % (auto) 0.2 %; Eosinophils # (auto) 0.04 K/uL (0.00-0.50); Eosinophils % (auto) 0.2 %; Hematocrit (blood only) 27.4 % (37.0-47.0); Hemoglobin 9.3 g/dl (12.0-16.0); Immature Granulocytes # (auto) 0.08 K/uL (0.01-0.20); Immature Granulocytes % (auto) 0.5 %; Lymphocytes # (auto) 1.45 K/uL (1.20-3.40); Mean Corpuscular Hemoglobin 30.3 pg (25.0-34.0); Mean Corpuscular Hgb Conc 33.9 g/dL (32.0-36.0); Mean Corpuscular Volume 89.3 fL (80.0-100.0); Mean Platelet Volume 9.9 fL (9.4-12.4); Monocytes # (auto) 0.96 K/uL (0.11-0.59); Monocytes % (auto) 5.9 %; Neutrophils # (auto) 13.63 K/uL (1.40-6.50); Neutrophils % (auto) 84.2 %; Platelet Count 265 K/uL (130-400); RDW Coefficient of Variation 13.3 % (11.5-14.5); RDW Standard Deviation 43.6 fL (36.4-46.3); Red Blood Count 3.07 M/uL (4.20-5.40)
[2024-10-04] MEDS: LEVOTHYROXINE SODIUM 137 MCG TABLET PO SCH (06:41)
--- NOTE | 2024-10-04 06:43 | Obstetrical Progress Note ---
Date of Service October 04, 2024 Assessment & Plan (1) Encounter for assessment: Plan: Patient is POD 1 s/p and doing well - Eating well, voiding well, ambulating well - vitals reviewed and within normal limits - pain well controlled with analgesics - OOB, ambulation, diet progression as tolerated - Blood type: A+ , GBS neg, rubella immune - Plan to discharge tomorrow - After discharge, 6 week follow up with OBGYN Admission and Anticipated Discharge Date Admission Date: October 03, 2024 Supervising Physician Co-Signing Physician Notes Resident Physician Supervision Note: I interviewed and examined the patient. Discussed with Dr. Vega and agree with findings and plan as documented in the note. Any exceptions or clarifications are listed here: Doing well. Routine postop care. Documented By: Paty Jacob MD, FACOG Subjective 34 yo post-operative day 1 s/p Ambulation: ambulating normally Voiding: no voiding problems Passing Gas:: No Diet Tolerance:: regular diet Lochia:: Small Feeding Type:: breast feeding Current Pain Level:4/10 Resting comfortably this AM in NAD. Denies SOW, CP, SOB, N/V/D, LE pain/swelling. Physical Exam Physical Exam: General: patient resting comfortably, NAD, non-toxic in appearance, answers questions appropriately. Skin: warm, dry, intact HEENT: NC/AT, anicteric sclera, conjunctiva without injection, moist mucus membranes. Heart: +S1/S2, regular, no m/r/g Lungs: equal air entry bilaterally, no rales/rhonchi/wheezes Abd: +BS, soft, NT/ND, uterine fundus firm at umbilicus Ext: warm, no clubbing/cyanosis or edema Neuro: nonfocal, speech intact, no facial droop, moving all extremities. Results & Data Vital Signs (Past 12 Hours) Vital Signs Temp Pulse Pulse Resp BP BP Pulse Ox 10/04/24 06:34 16 94 10/04/24 06:32 10/04/24 05:36 16 94 10/04/24 04:47 18 95 10/04/24 03:30 18 97 10/04/24 03:00 36.6 C 84 18 94/57 L 94 10/04/24 02:50 16 92 10/04/24 01:45 16 92 10/04/24 00:32 16 94 10/03/24 23:50 36.8 C 74 18 95/62 L 97 10/03/24 23:38 18 94 10/03/24 22:50 10/03/24 22:45 18 95 10/03/24 21:26 16 95 10/03/24 20:35 18 96 10/03/24 20:25 36.4 C L 92 H 18 102/66 96 10/03/24 20:25 10/03/24 20:15 100 H 100 10/03/24 20:11 101 H 108/59 L 10/03/24 20:10 96 H 100 10/03/24 20:05 100 H 100 10/03/24 20:01 76 104/58 L 10/03/24 20:00 36.5 C 18 10/03/24 20:00 80 100 10/03/24 19:55 92 H 100 10/03/24 19:51 93 H 111/70 10/03/24 19:50 100 H 100 10/03/24 19:45 100 H 100 10/03/24 19:41 100 H 104/71 10/03/24 19:40 96 H 100 10/03/24 19:35 98 H 100 10/03/24 19:31 107 H 108/69 10/03/24 19:30 18 10/03/24 19:30 108 H 100 10/03/24 19:25 112 H 100 10/03/24 19:21 108 H 118/60 10/03/24 19:20 104 H 100 10/03/24 19:15 111 H 100 10/03/24 19:11 109 H 114/61 10/03/24 19:10 97 H 100 10/03/24 19:05 109 H 100 10/03/24 19:01 109 H 111/65 10/03/24 19:00 19 10/03/24 19:00 115 H 100 10/03/24 18:55 122 H 98 10/03/24 18:51 129 H 126/60 10/03/24 18:50 15 10/03/24 18:50 127 H 97 10/03/24 18:45 129 H 96 Pulse Ox Pulse Ox O2 Del Method O2 Del Method O2 Del Method 10/04/24 06:34 10/04/24 06:32 95 Room Air 10/04/24 05:36 10/04/24 04:47 10/04/24 03:30 10/04/24 03:00 Room Air 10/04/24 02:50 10/04/24 01:45 10/04/24 00:32 10/03/24 23:50 Room Air 10/03/24 23:38 10/03/24 22:50 95 Room Air 10/03/24 22:45 10/03/24 21:26 10/03/24 20:35 10/03/24 20:25 Room Air 10/03/24 20:25 96 Room Air 10/03/24 20:15 10/03/24 20:11 10/03/24 20:10 10/03/24 20:05 10/03/24 20:01 10/03/24 20:00 10/03/24 20:00 10/03/24 19:55 10/03/24 19:51 10/03/24 19:50 10/03/24 19:45 10/03/24 19:41 10/03/24 19:40 10/03/24 19:35 10/03/24 19:31 10/03/24 19:30 10/03/24 19:30 10/03/24 19:25 10/03/24 19:21 10/03/24 19:20 10/03/24 19:15 10/03/24 19:11 10/03/24 19:10 10/03/24 19:05 10/03/24 19:01 10/03/24 19:00 10/03/24 19:00 10/03/24 18:55 10/03/24 18:51 10/03/24 18:50 10/03/24 18:50 10/03/24 18:45 Resident Activity Tracking Resident Involvement: Resident Care Provided Care Provided: OB Delivery
[2024-10-04] MEDS: FERROUS SULFATE 325 MG TAB PO SCH (07:29)
[2024-10-04] MEDS: PRENATAL VITAMIN 1 TAB PO SCH (07:29)
--- NOTE | 2024-10-04 08:08 | Medical Student Progress Note ---
Date of Service October 04, 2024 Assessment & Plan (1) Encounter for assessment: (2) Rash: Plan Encounter for assessment 34 year old F post-op day 1 s/p -Monitor i/o's. Regular diet as tolerated, established goal for independent voiding, BM's -Educated on increasing ambulation as tolerated -Follow up in clinic in 6 weeks w/Dr Jacob Abdominal rash Unclear etiology, not localized to surgical prep, tape, bandage site -Hydrocortisone 1% topical BID PRN Admission and Anticipated Discharge Date Admission Date: October 03, 2024 Subjective 34 yo post-operative day 1 s/p No acute overnight events. Endorsed systemic pruritus, otherwise no concerns Ambulation: ambulating normally Voiding: Off vinson, no voiding so far Passing Gas: No Diet Tolerance: Regular diet Lochia: Small Feeding Type: Breast feeding, no concerns Current Pain Level: 4/10 ROS: No headaches, fevers, chills, dyspnea, cough, wheezing, chest pain, palpitations, breast tenderness, abdominal pain, nausea/vomiting, leg pain, +edema Physical Exam Physical Exam: Well-appearing, in no acute distress. Vitals as above Respiratory: normal respiratory effort, lungs clear to auscultation Cardiovascular: Regular rate and rhythm, no murmurs, rubs, gallops. Bilateral leg edema, no pitting Gastrointestinal (Abdomen): Normoactive bowel sounds. Soft, nontender to palpation. Firm uterus, fundus in line with umbilicus. Well-demarcated, raised, pruritic rash at between incision bandage and surgical prep site. Skin: Warm and dry Results & Data Vital Signs (Past 12 Hours) Vital Signs Temp Pulse Pulse Resp BP BP Pulse Ox 10/04/24 06:34 16 94 10/04/24 06:32 10/04/24 05:36 16 94 10/04/24 04:47 18 95 10/04/24 03:30 18 97 10/04/24 03:00 36.6 C 84 18 94/57 L 94 10/04/24 02:50 16 92 10/04/24 01:45 16 92 10/04/24 00:32 16 94 10/03/24 23:50 36.8 C 74 18 95/62 L 97 10/03/24 23:38 18 94 10/03/24 22:50 10/03/24 22:45 18 95 10/03/24 21:26 16 95 10/03/24 20:35 18 96 10/03/24 20:25 36.4 C L 92 H 18 102/66 96 10/03/24 20:25 10/03/24 20:15 100 H 100 10/03/24 20:11 101 H 108/59 L 10/03/24 20:10 96 H 100 10/03/24 20:05 100 H 100 10/03/24 20:01 76 104/58 L 10/03/24 20:00 36.5 C 18 10/03/24 20:00 80 100 10/03/24 19:55 92 H 100 10/03/24 19:51 93 H 111/70 10/03/24 19:50 100 H 100 10/03/24 19:45 100 H 100 10/03/24 19:41 100 H 104/71 10/03/24 19:40 96 H 100 10/03/24 19:35 98 H 100 10/03/24 19:31 107 H 108/69 10/03/24 19:30 18 10/03/24 19:30 108 H 100 10/03/24 19:25 112 H 100 Pulse Ox Pulse Ox O2 Del Method O2 Del Method O2 Del Method 10/04/24 06:34 10/04/24 06:32 95 Room Air 10/04/24 05:36 10/04/24 04:47 10/04/24 03:30 10/04/24 03:00 Room Air 10/04/24 02:50 10/04/24 01:45 10/04/24 00:32 10/03/24 23:50 Room Air 10/03/24 23:38 10/03/24 22:50 95 Room Air 10/03/24 22:45 10/03/24 21:26 10/03/24 20:35 10/03/24 20:25 Room Air 10/03/24 20:25 96 Room Air 10/03/24 20:15 10/03/24 20:11 10/03/24 20:10 10/03/24 20:05 10/03/24 20:01 10/03/24 20:00 10/03/24 20:00 10/03/24 19:55 10/03/24 19:51 10/03/24 19:50 10/03/24 19:45 10/03/24 19:41 10/03/24 19:40 10/03/24 19:35 10/03/24 19:31 10/03/24 19:30 10/03/24 19:30 10/03/24 19: Laboratory Results WBC: 16.2, up 11.82 10/03 @ 8am; RBC 3.07, down 3.95; Hgb 9.3, down 11.8
[2024-10-04] MEDS: NALOXONE HCL 0.08 MG in SYRINGE 1.8 ML IV PRN (08:52)
[2024-10-04] MEDS ORDERED: Nursing to Pharmacy Communication SCH ×2 (09:30→14:15)
[2024-10-04] MEDS: HYDROCORTISONE 1% CRM 30 GM TUBE EXT PRN (11:03)
[2024-10-04] MEDS ORDERED: KETOROLAC 30 MG/ML VIAL IV PRN (18:01)
[2024-10-04] MEDS ORDERED: IBUPROFEN 600 MG TAB PO SCH (18:15)
[2024-10-04] MEDS: bisacodyL 5 MG TABEC PO SCH (19:47)
[2024-10-04] MEDS: IBUPROFEN 600 MG TAB PO SCH (19:48)
[2024-10-04] MEDS: diphenhydrAMINE Capsule 25 MG CAP PO PRN (20:53)
[2024-10-04 23:43] VITALS: RESP 18
[2024-10-05 07:12] LABS: Hematocrit (blood only) 28.1 % (37.0-47.0); Hemoglobin 9.4 g/dl (12.0-16.0)
--- NOTE | 2024-10-05 08:06 | Medical Student Progress Note ---
Date of Service October 05, 2024 Assessment & Plan (1) Encounter for assessment: visit type: exam and care immediately after delivery Qualified Code(s): Z39.0 - Encounter for care and examination of mother immedi ately after delivery Plan Encounter for assessment 34 year old F post-op day 2 s/p Pain well controlled, minimal lochia, voiding + ambulating independently, tolerating regular diet, well, no concerns -Discharge today -Follow up in clinic in 6 weeks w/Dr Jacob Admission and Anticipated Discharge Date Admission Date: October 03, 2024 Subjective 34 yo post-operative day 2 s/p No acute overnight events. Systemic pruritus, abdominal rash have resolved. Ambulation: ambulating normally Voiding: Yes Passing Gas: Yes Diet Tolerance: Regular diet Lochia: Small Feeding Type: Breast feeding, no concerns Current Pain Level: 2/10, using tylenol and motrin ROS: No headaches, fevers, chills, dyspnea, cough, wheezing, chest pain, palpitations, breast tenderness, abdominal pain, nausea/vomiting, leg pain, +edema Physical Exam Physical Exam: Well-appearing, in no acute distress. Vitals as above Respiratory: normal respiratory effort, lungs clear to auscultation Cardiovascular: Regular rate and rhythm, no murmurs, rubs, gallops. Bilateral leg edema, no pitting Gastrointestinal (Abdomen): Normoactive bowel sounds. Nontender to palpation. Rash resolved. Firm fundus, 2 cm below and in line with umbilicus. Skin: Warm and dry. incision site without drainage, erythema/edema Results & Data Vital Signs (Past 12 Hours) Vital Signs Temp Pulse Resp BP 10/04/24 23:40 36.6 C 77 18 101/69
--- NOTE | 2024-10-05 08:23 | Obstetrical Progress Note ---
Date of Service October 05, 2024 Assessment & Plan (1) Encounter for assessment: satisfactory post-op and exam would like to be discharged today follow up in 6 weeks or prn visit type: exam and care immediately after delivery Qualified Code(s): Z39.0 - Encounter for care and examination of mother immediately after delivery Subjective Ambulation: ambulating normally Voiding: no voiding problems Passing Gas:: Yes Diet Tolerance:: regular diet Lochia:: Small Feeding Type:: breast feeding doing well pain well controlled with current tylenol and motrin regimen Review of Systems All systems reviewed & are unremarkable except as noted in HPI & below Physical Exam Constitutional WD/WN, vitals as above Gastrointestinal (Abdomen) Inspection/Auscultation: + abdominal surgical incision (intact and dry no cellulitis) Psychiatric A+Ox3, euthymic affect Genitourinary OB Exam Abdomen: + fundal height Fundus: + firm and + relation to umbilicus (1 below U) no calf tenderness Results & Data Vital Signs (Past 12 Hours) Vital Signs Temp Pulse Resp BP 10/04/24 23:40 97.9 F 77 18 101/69
[2024-10-05 09:23] VITALS: BP 97/62; PULSE 73; TEMP 98.1; O2SAT 97
[2024-10-05] MEDS ORDERED: IBUPROFEN 600 MG TAB PO PRN (18:01)
[2024-10-05] MEDS ORDERED: bisacodyL 10 MG SUPP PR PRN (18:01)
[2024-10-06] MEDS ORDERED: ACETAMINOPHEN 325 MG TAB PO PRN (00:01)
--- NOTE | 2024-10-06 15:51 | Discharge Summary ---
Date of Service October 06, 2024 Admission HPI Per Admitting Provider Maria A is a 34 year old female here for induction of labor. Vinson bulb placed last night. No vaginal bleeding, discharge, regular contractions on admission. Current medications = levothyroxine, vitamin. 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 Jacob Labs Lab Results OB Labs: Blood Type A Positive 02/25/24 Antibody Screen NEGATIVE 02/25/24 Hgb 11.1 g/dl (12.0-16.0) L 07/12/24 Hct 33.0 % (37.0-47.0) L 07/12/24 MCV 87.8 fL (80.0-100.0) 02/25/24 Plt Count 289 K/uL (130-400) 02/25/24 VZV IgG Antibody 337.50 index 03/26/22 Rubella IgG Antibody Immune (Immune) 02/25/24 RPR Nonreactive (Nonreactive) 02/25/24 Treponema pallidum Ab Negative (Negative) 07/12/24 Hep Bs Antigen Negative (Negative) 02/25/24 Hep Bs Antigen NON-REACTIVE (NON-REACTIVE) 01/06/23 Hepatitis C Ab (EIA) NON-REACTIVE (NON-REACTIVE) 01/06/23 HIV 1&2 Ab/P24 Ag 4thGn Negative (Negative) 02/25/24 HIV (1&2) Ag & Ab Conf NON-REACTIVE (NON-REACTIVE) 01/06/23 Glucose 1 Hr 50 gm 154 mg/dl (70-130) H 07/12/24 OB Optional Labs: Chlamydia trachomatis RNA Not Detected (NotDetected) 02/25/24 Neisseria gonorrhoeae RNA Not Detected (NotDetected) 02/25/24 Thyroid Stimulating Hormone (TSH) 1.479 uIu/ml (0.300-4.500) 07/21/24 Labs Reviewed: Declines genetics--mln gbs neg--[facility] Discharge Data Consultations 10/03/24 07:58 Consult Anesthesiology Stat Procedures Performed Operation Date: 10/03/24 17:15 Actual Procedures p Section in LD; delivery of live female at 1726 - Paty Jacob MD, [facility] [place] Course (1) Face presentation of fetus: (2) Encounter for induction of labor: Plan Patient presented, her vinson was removed and pitocin started. She then got an epidural and underwent arom at 4-5cm. Copious clear fluid. Then is was noted to be a face presentation. Labored a bit longer to see if head would flex, but actually, mentum rotated posterior and so recommend c/s. Patient underwent a primary low transverse c/s without complication. qbl [id number]. Postop course uncomplicated--tolerated a regular diet, ambulated, tolerated po pain meds, tolerated a regular diet. Discharge h/h 9.4/28.1. d/c on postop day 2 to home, instructions given. Coding Level of Care Code None Diagnoses Face presentation of fetus O32.3XX0 Encounter for induction of labor Z34.90
== END 2024-10-05 14:26 | disposition home or self-care (01) | DRG 788 ==
LOC: 4S1 07:52 → 4E2 20:30